=== PATIENT | female | born 1955 | race American Indian/Alaskan Native ===

== ENCOUNTER 2017-01-05 11:03 | Day surgery (SDC) | payer OTHER ==
--- NOTE | 2017-01-05 13:32 | Anesthesia Consultation ---
Anesthesia Consult and Med Hx Date of service: 01/05/17 - Airway Anesthetic Teeth Evaluation: Good ROM Head & Neck: Adequate Mental/Hyoid Distance: Adequate Mallampati Class: Class II Intubation Access Assessment: Probably Good - Pulmonary Exam CTA: Yes - Cardiac Exam Cardiac Exam: RRR - Pre-Operative Health Status ASA Pre-Surgery Classification: ASA2 Proposed Anesthetic Plan: MAC - Pulmonary Hx Smoking: No Hx Asthma: No Hx Respiratory Symptoms: No SOB: No (denies) COPD: No Hx Pneumonia: No Hx Sleep Apnea: No - Cardiovascular System Hx Hypertension: Yes Hx Coronary Artery Disease: No Hx Heart Attack/AMI: No Hx Angina: No (denies) Hx Cardia Arrhythmia: No Hx Valvular Heart Disease: No - Central Nervous System Hx Neuromuscular Disorder: Yes (arthritis in knees) Hx Seizures: No CVA: No Hx Back Pain: No Hx Psychiatric Problems: Yes - Gastrointestinal Hx Gastroesophageal Reflux Disease: Yes (controlled with meds, took nexium today ) - Endocrine Hx Renal Disease: No Hx Liver Disease: No Hx Insulin Dependent Diabetes: No Hx Non-Insulin Dependent Diabetes: No Hx Thyroid Disease: No - Hematic Hx Anemia: No Hx Sickle Cell Disease: No - Other Systems Hx Alcohol Use: Yes (occasionally) Hx Substance Use: No Hx Cancer: No Hx Obesity: No (s/p gastric bypass. current BMI 23)
--- NOTE | 2017-01-05 13:32 | Anesthesia Day of Surgery ---
Anesthesia Day of Surgery - Day of Surgery Patient Examined: Yes Patient H&P Reviewed: Yes Patient is NPO: Yes Beta Blockers: Yes (atenolol 01/05/17)
[2017-01-05] MEDS ORDERED: NACL 0.9% 1000 ML 1,000 ML IV SCH (14:00)
[2017-01-05] MEDS ORDERED: DIPRIVAN 10 MG/ML IV ONE ×2 (14:52)
--- NOTE | 2017-01-05 15:22 | Operative Report ---
Operative Report Operative Report: Date of procedure: 01/05/2017 Procedure: Colonoscopy Attending physician: Jorge A Miranda MD Chicken Boner: Jorge A Miranda MD Indication: Patient is a 61-year-old female who presents for colorectal cancer screening. A colonoscopy is done to evaluate patient so that treatment may be directed based on the findings. Consent: Informed consent was obtained after advising the patient and family regarding nature of this procedure, its indications, potential benefits as well as possible complications including but not limited to bleeding perforation and adverse reaction to medication, infection as well as other cardiopulmonary complications. An informed written and verbal consent was then obtained after due opportunity was provided for questions and answers. Monitoring: Patient was monitored continuously with pulse oximetry and electrocardiographic recordings as well as blood pressure recordings. Vital signs remained stable throughout this procedure with no untoward events. Preoperative assessment: Patient was assessed immediately prior to this procedure for capacity to tolerate monitored anesthesia care and moderate sedation as well as general anesthesia. Patient's ASA classification is 2, Mallampati class is 2, Hyomental distance is 3. Instrument: Fujinon videocolonoscope Medications: Propofol given intravenously in divided doses. For details please refer to anesthesia records. Description of procedure: Patient was placed in the left lateral decubitus position after achieving sedation, a digital rectal examination was performed following which the colonoscope was introduced into the anal verge and advanced to the cecum which was identified by the cecal valve, the appendiceal orifice, as well as by the cecal strap and direct transillumination. The colonoscope was subsequently withdrawn with careful inspection of all mucosal surfaces. Patient tolerated this procedure well and was subsequently taken to the recovery room. The following findings were noted. Findings: The colon was moderately tortuous. There were diverticula seen in the sigmoid colon descending colon and also in the ascending colon. There were some scattered stool seen in sections of the colon which was easily irrigated. On the retroflex view at the mL verge, patient had internal hemorrhoids. Impression: Diverticular disease of colon Tortuosity of the colon Internal hemorrhoids Retained stool. Plan: High-fiber diet. Repeat colonoscopy in 10 years.
[2017-01-05] MEDS ORDERED: NORMODYNE IV ONE (15:29)
--- NOTE | 2017-01-05 15:29 | Discharge Summary ---
Short Stay Discharge Plan Activity: advance as tolerated Weight Bearing Status: Weight Bear as Tolerated Diet: regular Follow up with: PRIMARY CARE, [Primary Care Provider] - 7 Days
--- NOTE | 2017-01-05 16:26 | Post Anesthesia Evaluation ---
- Post Anesthesia Evaluation Patient Participated: Yes Airway Patent: Yes Stable Respiratory Function: Yes Nausea/Vomiting: No Temp > 96.8F: Yes Pain Manageable: Yes Adequeate Hydration: Yes Anesthesia Complications: No Block Receding Appropriately: Not Applicable Patient on Ventilator: No
[2017-01-05 16:45] VITALS: BP 135/89
== END 2017-01-05 11:04 | disposition home or self-care (01) ==
LOC: GIO 11:03
PROVIDERS: ATTEND Internal Medicine Gastroenterology
DX: Z12.11 Encounter for screening for malignant neoplasm of colon (principal); K63.89 Other specified diseases of intestine; K57.30 Diverticulosis of large intestine without perforation or abscess without bleeding; K64.8 Other hemorrhoids; I10 Essential (primary) hypertension; K21.9 Gastro-esophageal reflux disease without esophagitis; F32.9 Major depressive disorder, single episode, unspecified; M13.862 Other specified arthritis, left knee; M13.861 Other specified arthritis, right knee; Z72.89 Other problems related to lifestyle; Z98.84 Bariatric surgery status; Z98.890 Other specified postprocedural states; Z79.899 Other long term (current) drug therapy
CPT/HCPCS: 45378; J2704; J7030

== ENCOUNTER 2020-10-28 11:52 | Emergency (ER) | payer MEDICARE ==
[2020-10-28 13:13] VITALS: BP 125/88
--- NOTE | 2020-10-28 13:13 | Event Note ---
ED Screening Note ED Screening Note: Patient presents for generalized abdominal pain for couple of days She history of chronic abdominal issues She states that about a year ago she had an endoscopy and colonoscopy which she reports was normal, she states she last saw her GI doctor last month She states 2 days ago she was having vomiting and diarrhea but that has since resolved She has a history of bowel obstruction She states that she does feel nauseous She has an allergy to sulfa This initial assessment/diagnostic orders/clinical plan/treatment(s) is/are subject to change based on patients health status, clinical progression and re- assessment by fellow clinical providers in the ED. Further treatment and workup at subsequent clinical providers discretion. Patient/guardian urged not to elope from the ED as their condition may be serious if not clinically assessed and managed. Initial orders include: Labs, urine
[2020-10-28 14:00] LABS: Alanine Aminotransferase 21 units/L (7-56); Albumin 3.7 g/dL (3.9-5); BUN/Creatinine Ratio 23; Blood Urea Nitrogen 23 mg/dL (7-17); Calcium 9.2 mg/dL (8.4-10.2); Hemolysis Index 3
[2020-10-28 14:09] LABS: Basophils % (Auto) 0.2 % (0.0-1.8); Eosinophils % (Auto) 2.8 % (0.0-4.3); Hematocrit 38.2 % (30.3-42.9); Hemoglobin 12.7 gm/dl (10.1-14.3); Lymphocytes # (Auto) 1.7 K/mm3 (1.2-5.4); Lymphocytes % (Auto) 12.2 % (13.4-35.0); Mean Corpuscular HGB Conc 33 % (30-34); Mean Corpuscular Volume 87 fl (79-97); Monocytes # (Auto) 1.3 K/mm3 (0.0-0.8); Monocytes % (Auto) 9.7 % (0.0-7.3); Platelet Count 207 K/mm3 (140-440); Red Cell Distribution Width 14.1 % (13.2-15.2)
[2020-10-28] MEDS ORDERED: ONDANSETRON 4 MG/2 ML INJ IV ONE (14:10)
[2020-10-28] MEDS ORDERED: HYOSCYAMINE SUBL 0.125 MG TAB SL ONE (14:10)
[2020-10-28] MEDS ORDERED: FAMOTIDINE 20 MG/2 ML INJ IV ONE (14:10)
--- NOTE | 2020-10-28 14:15 | Emergency Department Report ---
ED General Adult HPI - General Chief complaint: Abdominal Pain Stated complaint: ABD PAIN Time Seen by Provider: 10/28/20 13:12 Source: patient Mode of arrival: Ambulatory Limitations: No Limitations - History of Present Illness Initial comments: 65-year-old female patient with history of bowel obstructions and multiple abdominal surgeries including gastric bypass surgery presents to the emergency department with complaints of worsening abdominal pain with associated nausea and vomiting for 2 days. Patient suffers from chronic abdominal pain, which is usually "crampy," but patient states "this pain feels different somehow." Pain is primarily localized to the upper abdomen. Patient was evaluated by a hat forming machine feeder last month but has not yet undergone colonoscopy. Last bowel movement was 2 days ago. Denies fever, chills, hematemesis, melena, rectal bleeding, urinary symptoms. Denies all other complaints at this time. - Related Data Home Medications Medication Instructions Recorded Confirmed Last Taken Esomeprazole Magnesium [Nexium] 40 mg PO DAILY 05/26/13 08/09/19 03/10/15 40 mg FLUoxetine HCL [PROzac] 40 mg PO QDAY 08/09/19 08/09/19 Unknown Potassium Chloride 10 meq PO DAILY 08/09/19 08/09/19 Unknown Sucralfate [Carafate] 1 tab PO QID 08/09/19 08/09/19 Unknown amLODIPine [Norvasc] 10 mg PO DAILY 08/09/19 08/09/19 Unknown Previous Rx's Medication Instructions Recorded Last Taken Type Ondansetron [Zofran Odt] 4 mg PO Q8HR PRN #20 tab.rapdis 07/25/19 Unknown Rx Promethazine [Phenergan TAB] 25 mg PO Q6HR PRN #20 tab 07/25/19 Unknown Rx oxyCODONE /ACETAMINOPHEN [Percocet 2 tab PO Q6HR PRN #20 tablet 08/05/19 Unknown Rx 5/325] Erythromycin Base [Erythromycin 250 mg PO Q8H #90 tablet 08/11/19 Unknown Rx 250MG TAB] oxyCODONE /ACETAMINOPHEN [Percocet 1 tab PO Q4HR PRN #20 tab 08/11/19 Unknown Rx 5/325] Dicyclomine [Bentyl] 20 mg PO QID #30 bottle 10/28/20 Unknown Rx Nitrofurantoin [place]/M-Cryst 100 mg PO Q12HR 5 Days capsule 10/28/20 Unknown Rx [Macrobid CAP] Allergies Allergy/AdvReac Type Severity Reaction Status Date / Time sulfur [From Sulfur-8] Allergy Unknown Verified 07/25/19 19:44 sulfur dioxide Allergy Unknown Verified 07/25/19 19:44 ED Review of Systems ROS: Stated complaint: ABD PAIN Other details as noted in HPI Other: GENERAL: Negative for fever, chills, weight change, anorexia, fatigue. ENT: Negative for ear pain, difficulty hearing, sore throat, nasal congestion, epistaxis. CARDIOVASCULAR: Negative for chest pain, palpitations, lower extremity swelling. PULMONARY: Negative for cough, dyspnea, wheezing, orthopnea, cyanosis. GASTROINTESTINAL: Positive for abdominal pain, nausea, vomiting MUSCULOSKELETAL: Negative for joint pain, joint swelling, myalgias, back pain, neck pain. NEUROLOGICAL: Negative for headache, seizure, syncope, paresthesias, weakness. INTEGUMENTARY: Negative for erythema, rash, diaphoresis, laceration, ecchymosis. HEMATOLOGICAL: Negative for hemoptysis, hematemesis, hematochezia, hematuria. PSYCHIATRIC: Negative for hallucinations, suicidal ideation, homicidal ideation, anxiety, depression. ED Past Medical Hx - Past Medical History Previous Medical History?: Yes Hx Hypertension: Yes Hx Heart Attack/AMI: No Hx GERD: Yes Hx Liver Disease: No Hx Renal Disease: No Hx Sickle Cell Disease: No Hx Arthritis: Yes (both knee replaced) Hx Seizures: No Hx Asthma: No Hx COPD: No Hx HIV: No Additional medical history: hx of bowel obstruction - Surgical History Past Surgical History?: Yes Hx Cholecystectomy: Yes Hx Breast Surgery: Yes (breast reduction) Additional Surgical History: gastric bypass - Social History Smoking Status: Never Smoker Substance Use Type: None - Medications Home Medications: Home Medications Medication Instructions Recorded Confirmed Last Taken Type Esomeprazole Magnesium [Nexium] 40 mg PO DAILY 05/26/13 08/09/19 03/10/15 History 40 mg Ondansetron [Zofran Odt] 4 mg PO Q8HR PRN #20 tab.rapdis 07/25/19 08/09/19 Unknown Rx Promethazine [Phenergan TAB] 25 mg PO Q6HR PRN #20 tab 07/25/19 08/09/19 Unknown Rx oxyCODONE /ACETAMINOPHEN [Percocet 2 tab PO Q6HR PRN #20 tablet 08/05/19 08/09/19 Unknown Rx 5/325] FLUoxetine HCL [PROzac] 40 mg PO QDAY 08/09/19 08/09/19 Unknown History Potassium Chloride 10 meq PO DAILY 08/09/19 08/09/19 Unknown History Sucralfate [Carafate] 1 tab PO QID 08/09/19 08/09/19 Unknown History amLODIPine [Norvasc] 10 mg PO DAILY 08/09/19 08/09/19 Unknown History Erythromycin Base [Erythromycin 250 mg PO Q8H #90 tablet 08/11/19 Unknown Rx 250MG TAB] oxyCODONE /ACETAMINOPHEN [Percocet 1 tab PO Q4HR PRN #20 tab 08/11/19 Unknown Rx 5/325] Dicyclomine [Bentyl] 20 mg PO QID #30 bottle 10/28/20 Unknown Rx Nitrofurantoin [place]/M-Cryst 100 mg PO Q12HR 5 Days capsule 10/28/20 Unknown Rx [Macrobid CAP] ED Physical Exam - General Limitations: No Limitations - Other Other exam information: General: Awake and alert. No acute distress. Head: Atraumatic, normocephalic. Eyes: EOMI. Pupils are equal and round. Normal sclera and conjunctiva. ENT: Oral mucosa is moist. Normal pharyngeal exam. Neck: Supple. No lymphadenopathy. Pulmonary: No respiratory distress. Clear to auscultation bilaterally. Cardiac: Regular rate and rhythm. Pulses are palpable and equal bilaterally. No lower extremity cyanosis or edema. Skin: Warm and dry. No rashes. Abdomen: Soft, non-protuberant. Multiple well-healed abdominal surgical scars noted. Diffuse upper abdominal tenderness with voluntary guarding. No rebound or rigidity. Bowel sounds are normal. No organomegaly or masses noted. McBurney's point is nontender. Back: Normal alignment. No CVA tenderness. Extremities: Symmetrical. Full range of motion intact. Neurological: Alert and oriented, appropriately interactive, no focal deficits. Psych: Cooperative. Appropriate mood and affect. Speech is evenly metered. Thoughts are logically construed. ED Course Vital Signs 10/28/20 13:10 Temperature 98.8 F Pulse Rate 79 Respiratory 20 Rate Blood Pressure 125/88 O2 Sat by Pulse 100 Oximetry ED Medical Decision Making - Lab Data Result diagrams: 10/28/20 13:14 10/28/20 13:14 - Radiology Data [facility] [address] [place] [address] Cat Scan Report Signed Patient: EYAD CABALLERO MR#: [id number] : 1955 Acct:[id number] Age/Sex: 65 / F ADM Date: 10/28/20 Loc: ED Attending Dr: Ordering Physician: YOLY DUQUE Date of Service: 10/28/20 Procedure(s): CT abdomen pelvis w con Accession Number(s): [id number] cc: YOLY DUQUE CT abdomen pelvis w con INDICATION / CLINICAL INFORMATION: upper abdominal pain + nausea; hx gastric bypass. TECHNIQUE: Axial CT images were obtained through the abdomen and pelvis after I V contrast. All CT scans at this location are performed using CT dose reduction for ALARA by means of automated exposure control. COMPARISON: 08/09/2019 FINDINGS: LOWER CHEST: No significant abnormality LIVER: No significant abnormality GALLBLADDER/BILIARY TREE: Gallbladder is surgically absent. Common bile duct remains dilated status post cholecystectomy, unchanged. PANCREAS: No significant abnormality SPLEEN: No significant abnormality ADRENALS: No significant abnormality KIDNEYS / URETER: No significant abnormality URINARY BLADDER: No significant abnormality REPRODUCTIVE ORGANS: Uterine fibroid again noted. No suspicious adnexal mass. STOMACH / BOWEL: Postoperative changes of gastric bypass. Moderate colonic stool burden. No evidence of colitis. Scattered colonic diverticula without CT evidence of diverticulitis. The appendix is normal in caliber. LYMPH NODES: No significant adenopathy. VASCULATURE: Moderate atherosclerotic calcifications of the ectatic aorta and major branching vessels. No acute findings. OTHER: No free air, free fluid, or focal fluid collection is identified. SKELETAL SYSTEM: Remote right pubic fractures. No acute osseous findings. Scattered degenerative changes of the spine again noted. IMPRESSION: 1. No acute abnormality of the abdomen or pelvis. No bowel obstruction or inflammation. 2. Stable chronic and postoperative changes, as above. Signer Name: Abrahan Velez MD Signed: 10/28/2020 4:01 PM Workstation Name: [id number] Transcribed By: SHANICE Dictated By: ABRAHAN VELEZ MD Electronically Authenticated By: ABRAHAN VELEZ MD Signed Date/Time: 10/28/20 1601 DD/ 1557 TD/TT: - Medical Decision Making Differential diagnosis including but not limited to: bowel obstruction, gastric outlet obstruction, bowel perforation, constipation, pancreatitis, appendicitis, volvulus, hernia On reevaluation, patient is stable. Repeat abdominal exam is benign. Labs show mild leukocytosis; urinalysis consistent with urinary tract infection. No fever or CVA tenderness to suggest pyelonephritis. Patient has reportedly been treated for multiple UTIs in the last few months; her primary care provider has already referred her to a urologist for further evaluation. Most recently, patient completed a course of Ciprofloxacin approximately 1 week ago. She is allergic to sulfa. Patient will be treated with Macrobid per current UpToDate guidelines regarding antimicrobial coverage for suspected MDR Gram-negative infection. CT of the abdomen/pelvis shows stable postoperative changes without acute process. No clinical indication for emergent surgical consultation at this time. Patient will be discharged home with appropriate symptomatic treatment and antibiotics for her UTI. She is already scheduled to see her primary care provider tomorrow. Patient has been provided with a copy of her imaging results and instructed to bring the report with her to her follow-up appointment. Patient expressed understanding and is agreeable to plan of care. Strict return precautions provided. Repeat exam is unremarkable and benign. History, exam, diagnostic testing, and current condition do not suggest worrisome pathology to warrant further testing, continued ED treatment, admission, or surgical evaluation at this point. Given the low probability of a significant medical illness, it would be more likely to result in harm than benefit to perform further testing at this stage. Discussed findings, presumptive diagnosis, need for follow-up and specific signs/symptoms that should prompt immediate return to the emergency department. Instructions were explained in detail to the patient in addition to giving written discharge information. Patient expressed understanding and was given the opportunity to ask questions, all of which were satisfactorily answered prior to discharge home. Critical care attestation.: If time is entered above; I have spent that time in minutes in the direct care of this critically ill patient, excluding procedure time. ED Disposition Clinical Impression: Chronic abdominal pain, Recurrent urinary tract infection Disposition: TO HOME OR SELFCARE Is pt being admited?: No Does the pt Need Aspirin: No Condition: Stable Instructions: Abdominal Pain, Adult, [id number], Abdominal Pain (ED) Additional Instructions: Take Tylenol every 4 hours as needed for pain. Take Bentyl as directed for intestinal discomfort. Take Macrobid twice daily for five days. Maintain a healthy, well-balanced diet. Increase your dietary fiber intake. Follow-up with primary care provider tomorrow as scheduled. Follow-up with hat forming machine feeder this week. Call tomorrow to schedule an appointment. Return to the emergency department immediately for new or worsening symptoms. Prescriptions: Dicyclomine [Bentyl] 20 mg PO QID #30 bottle Nitrofurantoin [place]/M-Cryst [Macrobid CAP] 100 mg PO Q12HR 5 Days capsule Referrals: [facility] [Provider Group] - 3-5 Days Time of Disposition: 16:16
[2020-10-28 15:21] LABS: Bacteria,Urine 2+ /HPF (Negative); Bilirubin,Urine NEG (Negative); Blood,Urine NEG (Negative); Color,Urine Amber (Yellow); Mucus,Urine 1+ /HPF; Urobilinogen,Urine < 2.0 mg/dL (<2.0)
--- NOTE | 2020-10-28 16:05 | Cat Scan Report ---
CT abdomen pelvis w con INDICATION / CLINICAL INFORMATION: upper abdominal pain + nausea; hx gastric bypass. TECHNIQUE: Axial CT images were obtained through the abdomen and pelvis after IV contrast. All CT sc ans at this location are performed using CT dose reduction for ALARA by means of automated exposure c ontrol. COMPARISON: 08/09/2019 FINDINGS: LOWER CHEST: No significant abnormality LIVER: No significant abnormality GALLBLADDER/BILIARY TREE: Gallbladder is surgically absent. Common bile duct remains dilated status p ost cholecystectomy, unchanged. PANCREAS: No significant abnormality SPLEEN: No significant abnormality ADRENALS: No significant abnormality KIDNEYS / URETER: No significant abnormality URINARY BLADDER: No significant abnormality REPRODUCTIVE ORGANS: Uterine fibroid again noted. No suspicious adnexal mass. STOMACH / BOWEL: Postoperative changes of gastric bypass. Moderate colonic stool burden. No evidence of colitis. Scattered colonic diverticula without CT evidence of diverticulitis. The appendix is norm al in caliber. LYMPH NODES: No significant adenopathy. VASCULATURE: Moderate atherosclerotic calcifications of the ectatic aorta and major branching vessels . No acute findings. OTHER: No free air, free fluid, or focal fluid collection is identified. SKELETAL SYSTEM: Remote right pubic fractures. No acute osseous findings. Scattered degenerative de santiago ges of the spine again noted. IMPRESSION: 1. No acute abnormality of the abdomen or pelvis. No bowel obstruction or inflammation. 2. Stable chronic and postoperative changes, as above. Signer Name: Michael Velez MD Signed: 10/28/2020 4:01 PM Workstation Name: [id number]
== END 2020-10-28 16:51 | disposition home or self-care (01) ==
LOC: ED 11:52
DX: N39.0 Urinary tract infection, site not specified (principal); R10.10 Upper abdominal pain, unspecified; G89.29 Other chronic pain; I10 Essential (primary) hypertension; K21.9 Gastro-esophageal reflux disease without esophagitis; Z90.49 Acquired absence of other specified parts of digestive tract; Z98.890 Other specified postprocedural states; Z79.899 Other long term (current) drug therapy; Z88.2 Allergy status to sulfonamides
CPT/HCPCS: 36415; 74177; 80053; 81001; 83690; 83735; 85025; 87086; 96374; 96375; 99284; J2405; Q9967